=== PATIENT | female | born 1995 | race Caucasian/White ===

== ENCOUNTER 2020-08-17 13:41 | Emergency (ER) | payer BC ==
[2020-08-17 14:07] VITALS: BP 130/86; PULSE 101; RESP 20; TEMP 98.3
--- NOTE | 2020-08-17 14:36 | XR ---
Right foot and right ankle HISTORY: Pain and swelling 3 views of the right foot, 3 views of the right ankle Soft tissue swelling is noted especially at the lateral ankle. There are small ossific densities dist al to the lateral malleolus. Alignment, joint spaces, bone mineralization are maintained. IMPRESSION: Findings likely represent ligamentous avulsion injury. No dislocation.
--- NOTE | 2020-08-17 15:12 | ED ---
Lower Extremity Injury HPI - General Chief Complaint: Extremity Injury, Lower Stated Complaint: Ankle injury Time Seen by Provider: 08/17/20 14:56 Source: patient Mode of arrival: wheelchair Limitations: no limitations - History of Present Illness Initial Comments: Patient is a 24-year-old female presenting to the emergency Department with complaints of right ankle pain after she rolled it today. Patient states she was walking with her children when she stepped on the side of the sidewalk where it meets the grass and her right ankle rolled over. Patient is having pain, swelling and is having pain with ambulation. Patient denies any previous injuries or fractures. She denies any other injuries from this fall. She has no further complaints at this time. - Related Data Allergies Allergy/AdvReac Type Severity Reaction Status Date / Time No Known Allergies Allergy Verified 08/17/20 14:07 Review of Systems ROS Statement: Those systems with pertinent positive or pertinent negative responses have been documented in the HPI. ROS Other: All systems not noted in ROS Statement are negative. Past Medical History Past Medical History: No Reported History History of Any Multi-Drug Resistant Organisms: None Reported Past Surgical History: Appendectomy Past Psychological History: No Psychological Hx Reported Smoking Status: Never smoker Past Alcohol Use History: Occasional Past Drug Use History: Marijuana General Exam - General Exam Comments Initial Comments: GENERAL: Patient is well-developed and well-nourished. Patient is nontoxic and in no acu te distress. HEAD: Atraumatic, normocephalic. EYES: Pupils equal round and reactive to light, extraocular movements intact, sclera anicteric, conjunctiva are normal. Eyelids were unremarkable. ENT: TMs normal, nares patent, oropharynx clear without exudates. Moist mucous membranes. NECK: Normal range of motion, supple without lymphadenopathy or JVD. LUNGS: Unlabored respirations. Breath sounds clear to auscultation bilaterally and equal. No wheezes rales or rhonchi. HEART: Regular rate and rhythm without murmurs, rubs or gallops. ABDOMEN: Soft, nontender, normoactive bowel sounds. No guarding, no rebound. No masses appreciated. : Deferred MUSCULOSKELETAL: Patient has pain with palpation of the right lateral ankle, lateral ankle ligaments, moderate swelling and decreased active range of motion secondary to pain. She is neurovascular intact. No clubbing or cyanosis. NEUROLOGICAL: Patient is alert and oriented x 3. PSYCH: Normal mood, normal affect. SKIN: Warm, Dry, normal turgor, no rashes or lesions noted. Limitations: no limitations Course Vital Signs 08/17/20 14:03 Temperature 98.3 F Pulse Rate 101 H Respiratory 20 Rate Blood Pressure 130/86 O2 Sat by Pulse 100 Oximetry Medical Decision Making - Medical Decision Making Patient is a 24-year-old female here after rolling her right ankle while walking with her kids earlier today. Exam reveals a moderate amount of swelling, pain around the lateral malleolus. X-rays revealed no acute fractures or dislocation, However there are small densities distal to the lateral malleolus which most likely represents ligamentous avulsion injury. Patient will be given an Aircast, Deepak bandage for compression. I did recommend elevation above the heart, anti-inflammatory such as Motrin or Aleve, ice the area. Patient is in agreement with this plan of care. She is stable for discharge. I will give her orthopedic follow-up if symptoms persist after 1-2 weeks. Disposition Clinical Impression: Moderate right ankle sprain Disposition: HOME SELF-CARE Condition: Stable Instructions (If sedation given, give patient instructions): Ankle Sprain (ED) Additional Instructions: Please return to the Emergency Department if symptoms worsen or any other concerns. X-rays reveal no acute fracture or dislocation however there is a small avulsion injury. Recommend ice to the area, elevation above heart level, compression with an Deepak wrap. Follow-up with orthopedics if symptoms persist after 1-2 weeks. Is patient prescribed a controlled substance at d/c from ED?: No Referrals: Juliocesar Lamar MD [Primary Care Provider] - 1-2 days Edgar Payton MD [STAFF PHYSICIAN] - 1-2 days
== END 2020-08-17 15:37 | disposition home or self-care (01) ==
LOC: EC 13:41
DX: S93.401A Sprain of unspecified ligament of right ankle, initial encounter (principal); X50.1XXA Overexertion from prolonged static or awkward postures, initial encounter; Y93.01 Activity, walking, marching and hiking; Y92.89 Other specified places as the place of occurrence of the external cause
CPT/HCPCS: 99283; 73610; 73630; L4350

== ENCOUNTER 2022-06-29 21:13 | Emergency (ER) | payer OTHER ==
[2022-06-29 22:08] VITALS: BP 167/100; PULSE 80; RESP 16; TEMP 98.3
[2022-06-29 22:40] LABS: Appearance,Urine Clear (Clear); Bilirubin,Urine Negative (Negative); Blood,Urine Small (Negative); Color,Urine Yellow; Glucose,Urine (UA) Negative (Negative); Hyaline Casts,Urine 3 /lpf (0-2); Ketones,Urine Negative (Negative); Leukocyte Esterase,Urine Negative (Negative); Mucus,Urine Rare /hpf; Nitrite,Urine Negative (Negative); Protein,Urine Trace (Negative); RBC,Urine 1 /hpf (0-5); Specific Gravity,Urine 1.022 (1.001-1.035); Squamous Epithelial Cell,Urine 2 /hpf (0-4); Urobilinogen,Urine <2.0 mg/dL (<2.0); WBC,Urine 2 /hpf (0-5)
[2022-06-29 22:45] LABS: Basophils % (A) 1 %; Eosinophils # (A) 0.1 k/uL (0-0.7); Eosinophils % (A) 1 %; HCT 40.1 % (34.0-46.0); HGB 13.4 gm/dL (11.4-16.0); Lymphocytes % (A) 25 %; MCH 30.3 pg (25.0-35.0); MCHC 33.5 g/dL (31.0-37.0); MCV 90.5 fL (80.0-100.0); Mean Platelet Volume 7.4; Monocytes # (A) 0.3 k/uL (0-1.0); Monocytes % (A) 4 %; Neutrophils # (A) 5.5 k/uL (1.3-7.7); Neutrophils % (A) 68 %; Platelet Count 298 k/uL (150-450); RBC 4.43 m/uL (3.80-5.40); RDW 12.6 % (11.5-15.5)
[2022-06-29 22:47] LABS: ALT 17 U/L (4-34); AST 26 U/L (14-36); African American GFR (CKD) >90 (>60 ml/min/1.73 sqM); Alkaline Phosphatase 59 U/L (38-126); Anion Gap 12 mmol/L; Blood Urea Nitrogen 16 mg/dL (7-17); Calcium 9.9 mg/dL (8.4-10.2); Carbon Dioxide 26 mmol/L (22-30); Chloride 99 mmol/L (98-107); Glucose 109 mg/dL (74-99); Non-African American GFR(CKD) >90 (>60 ml/min/1.73 sqM); Potassium 3.3 mmol/L (3.5-5.1); Sodium 137 mmol/L (137-145); Total Bilirubin 0.3 mg/dL (0.2-1.3)
== END 2022-06-30 00:51 | disposition left against medical advice (07) ==
LOC: EC 21:13
DX: N93.9 Abnormal uterine and vaginal bleeding, unspecified (principal); Z53.21 Procedure and treatment not carried out due to patient leaving prior to being seen by health care provider
CPT/HCPCS: 36415; 80053; 81001; 81025; 85025; 99499

== ENCOUNTER 2022-06-30 09:57 | Emergency (ER) | payer BC, OTHER ==
[2022-06-30 10:18] VITALS: PULSE 78; RESP 18; TEMP 98.7
--- NOTE | 2022-06-30 11:07 | US ---
EXAMINATION TYPE: US transvaginal plus Doppler DATE OF EXAM: 06/30/2022 COMPARISON: NONE CLINICAL HISTORY: 26-year-old female vaginal bleeding.. Pt states vaginal bleeding in between menses TECHNIQUE: Transvaginal (TV). Transvaginal sonographic images of the pelvis were acquired. Color Do ppler spectral waveform analysis of the ovarian arteries and veins. Date of LMP: 2 weeks ago FINDINGS: EXAM MEASUREMENTS: Uterus: 8.3 x 3.6 x 4.7 cm Endometrial Stripe: 0.5 cm Right Ovary: 2.9 x 2.0 x 2.8 cm Left Ovary: 2.3 x 1.7 x 2.4 cm 1. Uterus: Anteverted. Prominent vessels bilateral periphery of uterus may be physiologic change 2. Endometrium: wnl 3. Right Ovary: Cyst= 1.6 x 1.2 x 2.5 cm 4. Left Ovary: wnl Spectral, color and waveform doppler imaging shows good arterial and venous flow within the ovaries ; there is no evidence for ovarian torsion. 5. Bilateral Adnexa: wnl 6. Posterior cul-de-sac: wnl IMPRESSION: 1. Endometrial stripe thin at 5 mm. 2. Dominant follicle measuring 2.5 cm in the right ovary. 3. No sonographic evidence for ovarian torsion.
[2022-06-30] MEDS ORDERED: POTASSIUM CHLORIDE ER 20 MEQ TAB.ER PO STA (11:45)
--- NOTE | 2022-06-30 11:59 | ED ---
Female Urogenital HPI - General Source: patient Mode of arrival: ambulatory Limitations: no limitations <Alicia Navarro - Last Filed: 06/30/22 11:56> - General Source: RN notes reviewed, old records reviewed <Ede Lara - Last Filed: 06/30/22 12:53> - General Chief complaint: Vaginal Bleeding Stated complaint: vaginal bleeding Time Seen by Provider: 06/30/22 11:20 - History of Present Illness Initial comments: Patient is a 26-year-old female who presents emergency department concern for abnormal uterine bleeding. Presented originally last night but left without being seen after labs are drawn. States she was too tired and decided to just return in the morning. States that for the last 7-10 days she has been having worsening uterine bleeding. Initially it was heavy with clots, now it is straight knife machine cutter. Grossly her couple of liners per day. Was uncertain if she is . Is on control medication. Denies any vaginal discharge otherwise. Has no urinary complaints. Denies any lightheadedness or weakness. Attentive to follow up with INFECTION CONTROL COORDINATOR but was unable to. Presented last night for initial evaluation returns today for further evaluation. I evaluated the patient and she was placed in a room. No new changes since last night. (Ede Lara) - Related Data Allergies Allergy/AdvReac Type Severity Reaction Status Date / Time No Known Allergies Allergy Verified 06/30/22 10:18 Review of Systems ROS Other: All systems not noted in ROS Statement are negative. <Alicia Navarro - Last Filed: 06/30/22 11:56> ROS Other: All systems not noted in ROS Statement are negative. <Ede Lara - Last Filed: 06/30/22 12:53> ROS Statement: Those systems with pertinent positive or pertinent negative responses have been documented in the HPI. Review of Systems: CONST: Denies fever EYES: Denies blurry vision ENT: Denies nasal congestion C/V: Denies Chest pain RESP: Denies shortness of breath GI: Denies abdominal pain : Endorses bleeding, vaginal SKIN: Denies rash. MSK: Denies joint pain. NEURO: Denies headache (Ede Lara) Past Medical History Past Medical History: No Reported History History of Any Multi-Drug Resistant Organisms: None Reported Past Surgical History: Appendectomy Past Psychological History: No Psychological Hx Reported Smoking Status: Never smoker Past Alcohol Use History: Occasional Past Drug Use History: Marijuana <Alicia Navarro - Last Filed: 06/30/22 11:56> General Exam Limitations: no limitations <Alicia Navarro - Last Filed: 06/30/22 11:56> <Ede Lara - Last Filed: 06/30/22 12:53> - General Exam Comments Initial Comments: General: Appears in no acute distress. HEAD: Normal with no signs of head trauma. EYES: EOMI ENT: Hearing grossly intact, normal oropharynx. RESPIRATORY: Clear breath sounds bilaterally. No wheezes, rales, or rhonchi. C/V: Regular rate and rhythm. S1 and S2 auscultated, no edema, peripheral pulses 2+ and intact throughout ABD: Abd is soft, nontender, nondistended EXT: Normal range of motion, no obvious deformity SKIN: No rashes or lesions observed on exposed skin. NEURO: Alert and oriented 4. (Ede Lara) Course Vital Signs 06/30/22 06/30/22 10:14 12:19 Temperature 98.7 F 98.7 F Pulse Rate 78 78 Respiratory 18 18 Rate Blood Pressure 134/87 130/88 O2 Sat by Pulse 98 98 Oximetry Procedures <Alicia Navarro - Last Filed: 06/30/22 11:56> - Procedures Initial comment: Pelvic exam completed. Normal external perineum without lesions. Vaginal garay normal. Small amount of dark bloody discharge noted from cervical os without dilatation. Mild erosion noted to the cervix at approximately 9:00 to 7:00 without any overt lesions noted. No adnexal or uterine wall tenderness. No foul or purulent drainage noted. Findings discussed with patient. Encouraged close follow-up with METAL CONTROL WORKER on-call this time Dr. Stevens for further evaluation of cervical erosion and abnormal uterine bleeding. Findings discussed with attending for patient Dr. Lara. (Alicia Navarro) Medical Decision Making <Ede Lara - Last Filed: 06/30/22 12:53> - Medical Decision Making Based on the patient's presentation and physical exam, I'm concerned for dysfunctional uterine bleeding. No blood thinners. LMP 2 weeks ago. Laboratory studies were obtained last night. I do not believe we need to repeat these. Last night, they were remarkable for normal hemoglobin of 13.4. Potassium is mildly decreased at 3.3 which will be replenished now. Urine at that time was negative for infection as well as negative for . I did recommend we obtain an ultrasound which she was in agreement with. Ultrasound was obtained on the patient remained in triage. It was remarkable for a dominant right ovarian follicle, no evidence for torsion. No other findings. On my evaluation, I did update her on the results of her laboratory studies and imaging. I did recommended we obtain a pelvic exam. She was in agreement. Assisting mid-level provider will be performing pelvic. Please see her note. She did notice some abnormal tissue at the cervix, and we recommended a Pap smear. We do not have the supplies to obtain a Pap smear and we did reach out to multiple areas of the hospital were unable to locate supplies. We recommended follow-up with INFECTION CONTROL COORDINATOR in the next week to obtain a Pap smear and further evaluation. She was in agreement with this plan. Strict return precautions were discussed. She will return if any worsening symptoms. Vitals remain wnl. I instructed the patient to follow up with their PCP in the next 1-3 days. I provided contact information for INFECTION CONTROL COORDINATOR. I explained that the patient should return to the emergency department if they experience any worsening symptoms. Strict return precautions were discussed with the patient. The patient expressed understanding of these instructions. I answered all questions that the patient had. The patient was discharged home in good condition with their prescriptions and follow up information. (Ede Lara) Disposition <Alicia Navarro - Last Filed: 06/30/22 11:56> Is patient prescribed a controlled substance at d/c from ED?: No Time of Disposition: 12:00 <Ede Lara - Last Filed: 06/30/22 12:53> Clinical Impression: Dysfunctional uterine bleeding Disposition: HOME SELF-CARE Condition: Good Instructions (If sedation given, give patient instructions): Dysmenorrhea (ED) Additional Instructions: follow up with obgyn for a pap smear. Referrals: Juliocesar Lamar MD [Primary Care Provider] - 1-2 days Simona Stevens DO [Doctor of Osteopathic Medicine] - 1-2 days
[2022-06-30 12:20] VITALS: BP 130/88
== END 2022-06-30 12:20 | disposition home or self-care (01) ==
LOC: EC 09:57
DX: N93.8 Other specified abnormal uterine and vaginal bleeding (principal); F12.90 Cannabis use, unspecified, uncomplicated
CPT/HCPCS: 76830; 93975; 99284

== ENCOUNTER 2023-10-13 15:56 | Outpatient (CLI) | payer BC, OTHER ==
[2023-10-13 19:05] VITALS: BP 131/76; PULSE 84; RESP 16; TEMP 97
--- NOTE | 2023-10-16 17:28 | P.MSEPDOC ---
Presenting Problems - Arrival Data Date of Arrival on Unit: 10/13/23 Time of Arrival on Unit: 15:56 Mode of Transport: Ambulatory - Complaint OB-Reason for Admission/Chief Complaint: Possible Onset of Labor Medical History - Information : 3 Para: 2 Term: 2 : 0 Abortions: Spontaneous or Elective: 0 Number of Living Children: 2 - Gestational Age Gestational Age by JOSE (wks/days): 38 Weeks and 0 Days Review of Systems - Review of Systems Constitutional: No problems Breast: No problems ENT: No problems Cardiovascular: No problems Respiratory: No problems Gastrointestinal: No problems Genitourinary: No problems Musculoskeletal: No problems Neurological: No problems Skin: No problems Vital Signs - Temperature Temperature: 97 F Temperature Source: Temporal Artery Scan - Pulse Right Pulse Rate: 84 Pulse Assessment Method: Automatic Cuff - Respirations Respiratory Rate: 16 Oxygen Delivery Method: Room Air O2 Sat by Pulse Oximetry: 100 - Blood Pressure Right Arm Blood Pressure: 131/76 Blood Pressure Mean: 94 Blood Pressure Source: Automatic Cuff Medical Screen Scoring - Cervical Exam Dilation (cm): 2 Effacement (%): 50 Station: -2 Membranes: Intact - Uterine Contractions Frequency From (mins): 7 Frequency To (mins): 9 Duration From (seconds): 80 Duration To (seconds): 110 Intensity: Mild Resting: Soft to palpation - Assessment - Baby A Baseline FHR: 125 Heart Rate - NICHD Category: Category I (Normal) Physician Notification - Physician Notified Physician Notified Date: 10/13/23 Physician Notified Time: 16:40 Physician: Giulia Saldaña Order Received: Yes (dc instruction) Maternal Triage Index - Non-Urgent/Priority 4 Non-Urgent Priority 4: Yes Criteria Met for Priority 4: 38.0 michell Disposition - Disposition OB Disposition: Triage, Discharge to home Discharge Date: 10/13/23 Discharge Time: 16:55 I agree with the RN Medical Screening Exam: Yes Physician's MSE Comment: I have neither seen nor examined the patient. Case reviewed; plan agreed upon as documented in EMR&OBIX.: Yes Diagnosis: RELATED CONDITIONS, UNSPECIFIED, THIRD TRIMESTER
== END 2023-10-13 16:55 | disposition home or self-care (01) ==
LOC: FBPOP 15:56
PROVIDERS: ATTEND Obstetrics & Gynecology
DX: O47.03 False labor before 37 completed weeks of gestation, third trimester (principal); Z3A.38 38 weeks gestation of pregnancy; Z91.018 Allergy to other foods
CPT/HCPCS: 59025; 84112; 99213

== ENCOUNTER 2023-10-14 14:35 | Outpatient (CLI) | payer BC, OTHER ==
[2023-10-14 16:15] VITALS: BP 136/68; PULSE 83; RESP 16; TEMP 97
--- NOTE | 2023-10-16 17:27 | P.MSEPDOC ---
Presenting Problems - Arrival Data Date of Arrival on Unit: 10/14/23 Time of Arrival on Unit: 14:35 Mode of Transport: Ambulatory - Complaint OB-Reason for Admission/Chief Complaint: Possible Onset of Labor Comment: Pt presents to triage with c/o contx that are every 5 minutes apart. Pt was in triage yesterday afternoon with c/o contx, pt states they have not stopped since. Medical History - Information : 3 Para: 2 Term: 2 : 0 Abortions: Spontaneous or Elective: 0 Number of Living Children: 2 - Gestational Age Gestational Age by JOSE (wks/days): 38 Weeks and 1 Days Review of Systems - Review of Systems Constitutional: No problems Breast: No problems ENT: No problems Cardiovascular: No problems Respiratory: No problems Gastrointestinal: No problems Genitourinary: No problems Musculoskeletal: No problems Neurological: No problems Skin: No problems Vital Signs - Temperature Temperature: 97.0 F Temperature Source: Temporal Artery Scan - Pulse Pulse Oximetery Pulse Rate: 83 Pulse Assessment Method: Pulse Oximetry - Respirations Respiratory Rate: 16 Oxygen Delivery Method: Room Air - Blood Pressure Right Arm Blood Pressure: 136/68 Blood Pressure Mean: 90 Blood Pressure Source: Automatic Cuff Medical Screen Scoring - Cervical Exam Dilation (cm): 2 Effacement (%): 50 Station: -2 Membranes: Intact - Uterine Contractions Frequency From (mins): 6 Frequency To (mins): 8 Duration From (seconds): 60 Duration To (seconds): 90 Intensity: Moderate Resting: Soft to palpation - Assessment - Baby A Baseline FHR: 145 Heart Rate - NICHD Category: Category I (Normal) NST: Reactive Physician Notification - Physician Notified Physician Notified Date: 10/14/23 Physician Notified Time: 15:15 Physician: Giulia Saldaña Order Received: Yes - Notification Comment Comment: RN spoke with Dr. Saldaña, who was on the phone speaking with another RN regarding another pt, and reported triage pt with c/o contx that are every 5 minutes apart. Reported reactive NST, cervical exam of 2/50/-2, which she was yesterday in triage, and contx every 8 minutes apart. Order received if pt has not made any cervical change after one hour of first exam, RN can discharge pt home. Maternal Triage Index - Maternal Triage Index Presenting for scheduled procedure w/no complaint: No - Stat/Priority 1 Stat Priority 1: No - Urgent/Priority 2 Urgent Priority 2: No - Prompt/Priority 3 Prompt Priority 3: No - Non-Urgent/Priority 4 Non-Urgent Priority 4: Yes Criteria Met for Priority 4: > 37 weeks early labor signs Disposition - Disposition OB Disposition: Discharge to home, Written follow up instructions reviewed Discharge Date: 10/14/23 Discharge Time: 15:59 I agree with the RN Medical Screening Exam: Yes Physician's MSE Comment: I have neither seen nor examined the patient. Case reviewed; plan agreed upon as documented in EMR&OBIX.: Yes Diagnosis: RELATED CONDITIONS, UNSPECIFIED, THIRD TRIMESTER
== END 2023-10-14 15:59 | disposition home or self-care (01) ==
LOC: FBPOP 14:35
PROVIDERS: ATTEND Obstetrics & Gynecology
DX: O47.1 False labor at or after 37 completed weeks of gestation (principal); Z3A.38 38 weeks gestation of pregnancy; Z91.018 Allergy to other foods
CPT/HCPCS: 59025; 99213

== ENCOUNTER 2023-10-15 14:53 | Outpatient (CLI) | payer BC, OTHER ==
[2023-10-15 18:12] VITALS: BP 128/77; PULSE 112; RESP 16; TEMP 96.9
--- NOTE | 2023-10-19 11:04 | P.MSEPDOC ---
Presenting Problems - Arrival Data Date of Arrival on Unit: 10/15/23 Time of Arrival on Unit: 14:23 Mode of Transport: Ambulatory - Complaint OB-Reason for Admission/Chief Complaint: Possible Onset of Labor Medical History - Information : 3 Para: 2 Term: 2 : 0 Abortions: Spontaneous or Elective: 0 Number of Living Children: 2 - Gestational Age Gestational Age by JOSE (wks/days): 90 Weeks and 3 Days Review of Systems - Review of Systems Constitutional: No problems Breast: No problems ENT: No problems Cardiovascular: No problems Respiratory: No problems Gastrointestinal: No problems Genitourinary: No problems Musculoskeletal: No problems Neurological: No problems Skin: No problems Vital Signs - Temperature Temperature: 96.9 F Temperature Source: Oral - Pulse Right Brachial Pulse Rate: 112 Pulse Assessment Method: Automatic Cuff - Respirations Respiratory Rate: 16 Oxygen Delivery Method: Room Air O2 Sat by Pulse Oximetry: 99 - Blood Pressure Right Arm Blood Pressure: 128/77 Blood Pressure Mean: 94 Blood Pressure Source: Automatic Cuff Medical Screen Scoring - Cervical Exam Dilation (cm): 3 Effacement (%): 50 Station: -2 Membranes: Intact - Uterine Contractions Frequency From (mins): 3 Frequency To (mins): 4 Duration From (seconds): 50 Duration To (seconds): 60 Intensity: Moderate Resting: Soft to palpation - Assessment - Baby A Baseline FHR: 120 Heart Rate - NICHD Category: Category I (Normal) NST: Reactive Physician Notification - Physician Notified Physician Notified Date: 10/15/23 Physician Notified Time: 17:33 Physician: Madan Henriquez - Notification Comment Comment: Dr. Henriquez called with report on patient reccheck that remains the same /2 after the thrid check. Category 1 heart tones, contractions 3-4 minutes apart. Patient to be discharged home, patient lives close to hospital. Patient to keep schedueld appointment for the morning. Maternal Triage Index - Maternal Triage Index Presenting for scheduled procedure w/no complaint: No - Stat/Priority 1 Stat Priority 1: No - Urgent/Priority 2 Urgent Priority 2: No - Prompt/Priority 3 Prompt Priority 3: No - Non-Urgent/Priority 4 Non-Urgent Priority 4: Yes Criteria Met for Priority 4: 38 2/7 contractions Disposition - Disposition OB Disposition: Discharge to home Discharge Date: 10/15/23 Discharge Time: 17:43 I agree with the RN Medical Screening Exam: Yes Physician's MSE Comment: I have neither seen nor examined the patient. Her gestational age is 38-3/7 weeks, not 90-3/7 weeks. Case reviewed; plan agreed upon as documented in EMR&OBIX.: Yes Diagnosis: RELATED CONDITIONS, UNSPECIFIED, THIRD TRIMESTER
== END 2023-10-15 17:42 ==
LOC: FBPOP 14:53
PROVIDERS: ATTEND Obstetrics & Gynecology
DX: O47.1 False labor at or after 37 completed weeks of gestation (principal); Z3A.38 38 weeks gestation of pregnancy; Z91.018 Allergy to other foods
CPT/HCPCS: 59025; 99213

== ENCOUNTER 2023-10-23 06:44 | Inpatient (IN) | payer BC, OTHER ==
[2023-10-23] MEDS ORDERED: CARBOPROST TROMETHAMINE 250 MCG/ML 1 ML AMP IM PRN (07:13)
[2023-10-23] MEDS ORDERED: TRANEXAMIC 1,000 MG/100ML-NACL 1,000 MG in EMPTY BAG 1 BAG IV PRN (07:13)
[2023-10-23] MEDS ORDERED: METHYLERGONOVINE 0.2 MG/ML 1 ML AMP IM PRN (07:13)
[2023-10-23] MEDS ORDERED: LIDOCAINE 0.5% (PF) 5 MG/ML (50 ML SDV) SQ PRN (07:13)
[2023-10-23] MEDS ORDERED: OXYTOCIN 10 UNIT/ML 1 ML VIAL IM PRN (07:13)
[2023-10-23] MEDS ORDERED: TERBUTALINE 1 MG/ML VIAL SQ PRN (07:13)
[2023-10-23] MEDS ORDERED: miSOPROStoL 200 MCG TAB PO PRN (07:13)
[2023-10-23] MEDS ORDERED: OXYTOCIN 30 UNITS/500 ML NS 30 UNIT in SALINE 1 500ML.BAG IV SCH ×2 (07:15→12:45)
[2023-10-23] MEDS: LACTATED RINGERS 1,000 ML IV SCH ×2 (07:19→10:24)
[2023-10-23 07:25] LABS: Basophils # (A) 0.1 k/uL (0-0.2); Basophils % (A) 0 %; Eosinophils # (A) 0.1 k/uL (0-0.7); Eosinophils % (A) 1 %; HCT 32.6 % (34.0-46.0); Lymphocytes # (A) 2.3 k/uL (1.0-4.8); Lymphocytes % (A) 19 %; MCH 28.8 pg (25.0-35.0); MCHC 33.6 g/dL (31.0-37.0); MCV 85.7 fL (80.0-100.0); Mean Platelet Volume 8.5; Monocytes # (A) 0.7 k/uL (0-1.0); Monocytes % (A) 5 %; Neutrophils # (A) 8.8 k/uL (1.3-7.7); Neutrophils % (A) 72 %; Platelet Count 245 k/uL (150-450); RDW 13.2 % (11.5-15.5); WBC 12.3 k/uL (3.8-10.6)
[2023-10-23] MEDS ORDERED: NALBUPHINE 10 MG/ML (10 ML MDV) IV PRN (08:48)
--- NOTE | 2023-10-23 08:51 | P.HPOB ---
History of Present Illness H&P Date: 10/23/23 Chief Complaint: 39+ weeks, elective induction The patient is a 28-year-old 3 para 2 scissors or 2 admitted at 39+ weeks as established by last menstrual period and confirmed by 8 week ultrasound. She is admitted for elective induction of labor with all signs reassuring, category 1 heart tracing. Her has been entirely uncomplicated and group B strep status is negative. Obstetrical history 3 para 2 scissors or 2 with 2 term vaginal deliv eries without complications. Current statistics are listed in history of present illness. EDC of 10/27/2023 was established by last menstrual period and confirmed by 8 week ultrasound. Laboratory workup demonstrates a blood type of B+ with a negative antibody screen. Rubella status is immune. The remainder of the laboratory workup was within normal limits. One hour Glucola was normal and group B strep status is negative. Gynecologic history: Unremarkable with no history of any infections to include STDs. Review of Systems Review of systems is confined to history of present illness. Past Medical History Past Medical History: No Reported History History of Any Multi-Drug Resistant Organisms: None Reported Past Surgical History: Appendectomy Past Anesthesia/Blood Transfusion Reactions: No Reported Reaction Past Psychological History: Anxiety Smoking Status: Former smoker Past Alcohol Use History: Occasional Past Drug Use History: None Reported - Past Family History Father Family Medical History: Diabetes Mellitus, Hypertension Medications and Allergies Home Medications Medication Instructions Recorded Confirmed Type Atomoxetine HCl [Strattera] 10 mg PO DAILY 10/13/23 10/15/23 History Allergies Allergy/AdvReac Type Severity Reaction Status Date / Time wheat Allergy Rash/Hives Verified 10/15/23 15:18 Exam Vital Signs Temp Pulse Resp BP Pulse Ox 10/23/23 07:01 96 F L 90 18 139/86 97 Intake and Output 10/22/23 10/23/23 10/23/23 22:59 06:59 14:59 Other: Weight 75.296 kg In general, this is a well-developed, well-nourished white female in no acute distress. Her heart has a regular rhythm and rate without murmur. Her lungs clear to auscultation bilaterally in all iverson. Her abdomen is gravid, nondistended, has normal active bowel sounds, soft, nontender, without any pa lpable masses aside from uterine fundus. Her extremities are without any cyanosis, clubbing, or edema and are nontender to palpation bilaterally. Digital cervical examination demonstrates her cervix to be 3 cm dilated, 70% effaced, with vertex in presentation at -2 station. Artificial rupture of membranes is carried out demonstrating clear fluid. Results Result Diagrams: 10/23/23 07:10 Abnormal Lab Results - Last 24 Hours (Table) 10/23/23 Range/Units 07:10 WBC 12.3 H (3.8-10.6) k/uL Hgb 11.0 L (11.4-16.0) gm/dL Hct 32.6 L (34.0-46.0) % Neutrophils # 8.8 H (1.3-7.7) k/uL Assessment and Plan (1) Term Current Visit: Yes Status: Acute Code(s): Z34.90 - ENCNTR FOR SUPRVSN OF NORMAL , UNSP, UNSP TRIMESTER SNOMED Code(s): 69745361 Plan: The patient is admitted for elective induction of labor. Pitocin augmentation has been started and she has undergone artificial rupture membranes. She'll have close maternal and surveillance and expectant management will be practiced. She is a good candidate for either IV, epidural, or nitrous analgesia, whichever she may choose.
[2023-10-23] MEDS ORDERED: fentaNYL (PF) 50 MCG/ML 5 ML AMP ONE (10:15)
[2023-10-23] MEDS ORDERED: SODIUM CHLORIDE 0.9% 250 ML BAG ONE (10:15)
[2023-10-23] MEDS ORDERED: ROPIVACAINE 5 MG/ML 30 ML VIAL ONE (10:15)
[2023-10-23] MEDS ORDERED: HYDROcodone/APAP 5-325MG 1 EACH TAB PO PRN (12:35)
[2023-10-23] MEDS ORDERED: diphenhydrAMINE 50 MG/ML 1 ML VIAL IVP PRN ×2 (12:35)
[2023-10-23] MEDS ORDERED: ACETAMINOPHEN TAB 325 MG TAB PO PRN (12:35)
[2023-10-23] MEDS ORDERED: HYDROcodone/APAP 7.5-325MG 1 EACH TAB PO PRN (12:35)
[2023-10-23] MEDS ORDERED: LANOLIN CREAM 5 GM TUBE TOPICAL PRN (12:35)
[2023-10-23] MEDS ORDERED: diphenhydrAMINE 25 MG CAP PO PRN (12:35)
[2023-10-23] MEDS ORDERED: ZOLPIDEM 5 MG TAB PO PRN (12:35)
[2023-10-23] MEDS ORDERED: BENZOCAINE/MENTHOL SPRAY 1 GM/SPRAY AEROSOL TOPICAL PRN (12:35)
[2023-10-23] MEDS ORDERED: SIMETHICONE 80 MG CHEWABLE PO PRN (12:35)
[2023-10-23] MEDS ORDERED: HYDROCORTISONE 2.5% RECTAL CREAM 30 GM TUBE RECTAL PRN (12:35)
[2023-10-23] MEDS ORDERED: diphenhydrAMINE 50 MG CAP PO PRN (12:35)
--- NOTE | 2023-10-23 12:40 | P.PROBDLV ---
Vaginal Delivery Note - . Vaginal Delivery Note: The patient is a 28-year-old 3 para 2001 who presents the hospital at 39-3/7 weeks for elective induction with all signs reassuring, category 1 heart tracing. Her has been uncomplicated and group B strep status is negative. On labor and delivery, she had Pitocin augmentation started and underwent artificial rupture of membranes for clear fluid. She made progress to the active phase and had an epidural catheter placed for analgesia. She then progressed fairly quickly through the active phase of labor to complete and pushed over the course of approximately 2-3 contractions to a normal spontaneous vaginal delivery of a viable 7 lbs. 3 oz. baby girl with Apgars of 9 at 1 minute and 9 at 5 minutes delivered in the right occiput anterior position. There was a loose nuchal cord 2 which was reduced on the perineum. The placenta was del ivered spontaneously, intact, and grossly normal with a grossly normal, roughly centrally inserted three-vessel cord. There are no lacerations the perineum, vagina, or cervix. Estimated blood loss for the case was approximately 300 mL. There were no complications. Both mother and are resting comfortably in recovery.
[2023-10-23] MEDS: IBUPROFEN 600 MG TAB PO PRN (19:45)
[2023-10-23] MEDS: SENNOSIDES-DOCUSATE SODIUM 1 EACH TAB PO SCH (19:45)
[2023-10-23 20:51] VITALS: RESP 18
[2023-10-24] MEDS: IBUPROFEN 600 MG TAB PO PRN (05:39)
[2023-10-24 07:48] LABS: Basophils # (A) 0.1 k/uL (0-0.2); Basophils % (A) 0 %; Eosinophils # (A) 0.1 k/uL (0-0.7); Eosinophils % (A) 1 %; HCT 29.7 % (34.0-46.0); HGB 10.1 gm/dL (11.4-16.0); Lymphocytes # (A) 2.4 k/uL (1.0-4.8); Lymphocytes % (A) 19 %; MCH 29.1 pg (25.0-35.0); MCHC 33.9 g/dL (31.0-37.0); MCV 85.8 fL (80.0-100.0); Mean Platelet Volume 8.1; Monocytes # (A) 0.6 k/uL (0-1.0); Monocytes % (A) 4 %; Neutrophils # (A) 9.7 k/uL (1.3-7.7); Neutrophils % (A) 75 %; Platelet Count 242 k/uL (150-450); RBC 3.46 m/uL (3.80-5.40)
[2023-10-24] MEDS: SENNOSIDES-DOCUSATE SODIUM 1 EACH TAB PO SCH (08:02)
[2023-10-24 08:28] VITALS: BP 113/65; PULSE 88; TEMP 98.3
--- NOTE | 2023-10-24 08:41 | P.DS ---
Providers Date of admission: 10/23/23 06:44 Expected date of discharge: 10/24/23 Attending physician: Madan Henriquez Primary care physician: Juliocesar Lamar - Discharge Diagnosis(es) (1) Normal spontaneous vaginal delivery Current Visit: Yes Status: Acute (2) Nuchal cord, delivered, current hospitalization Current Visit: Yes Status: Acute (3) Term Current Visit: Yes Status: Acute Hospital Course: This is a 28-year-old 3 now para 3003 that presented to labor and delivery on 10/23 for scheduled induction of labor at 39-3/7 weeks. Patient been receiving uncomplicated care with Dr. Sales. Patient was admitted and Pitocin induction of labor was begun per hospital protocol. Patient underwent amniotomy and clear fluid was obtained. Patient made progress and did request an epidural. Epidural was placed without difficulty by the anesthesia department. Patient progressed quickly to complete began pushing and had a normal spontaneous vaginal delivery of a viable female infant at 1217, weight of 7 lbs. 3 oz., Apgars of 9 and 9 at one and 5 minutes respectively. No vaginal lacerations were appreciated after the delivery. Patient's course has been uneventful. On this day #1 she is ambulating and voiding without difficulty. She is breast-feeding without difficulty. She is tolerating a regular diet without nausea or vomiting. States her pain is well-controlled. Would like discharge home at 24 hours. Patient Condition at Discharge: Good Plan - Discharge Summary New Discharge Prescriptions: No Action Atomoxetine HCl [Strattera] 10 mg PO DAILY Discharge Medication List Atomoxetine HCl [Strattera] 10 mg PO DAILY 10/13/23 [History] Follow up Appointment(s)/Referral(s): Madan Henriquez MD [STAFF PHYSICIAN] - 6 Weeks Patient Instructions/Handouts: Vaginal Delivery (DC), Vaginal Delivery (GEN) Activity/Diet/Wound Care/Special Instructions: No tub baths or intercourse until 6 weeks . Patient is to call the office immediately routine visit at 6 weeks. [id number] ibuprofen 600 mg or 3 tablets every 6 hours as needed. Should patient have any concerns prior to her visit she is urged to call the office. Discharge Disposition: HOME SELF-CARE
== END 2023-10-24 13:50 | disposition home or self-care (01) | DRG 807 ==
LOC: 4FBP 06:44
PROVIDERS: ADMIT Obstetrics & Gynecology; ATTEND Obstetrics & Gynecology
PROC: 10E0XZZ Delivery of Products of Conception, External Approach (ICD-10-PCS; principal; 2023-10-23)
PROC: 10907ZC Drainage of Amniotic Fluid, Therapeutic from Products of Conception, Via Natural or Artificial Opening (ICD-10-PCS; 2023-10-23)
PROC: 3E033VJ Introduction of Other Hormone into Peripheral Vein, Percutaneous Approach (ICD-10-PCS; 2023-10-23)
DX: O69.81X0 Labor and delivery complicated by cord around neck, without compression, not applicable or unspecified (principal); Z37.0 Single live birth; Z3A.39 39 weeks gestation of pregnancy; Z82.49 Family history of ischemic heart disease and other diseases of the circulatory system; Z83.3 Family history of diabetes mellitus; Z87.891 Personal history of nicotine dependence
CPT/HCPCS: 85025; 86850; 86900; 86901